=== PATIENT | male | born 1955 | race Caucasian/White ===

== ENCOUNTER 2022-07-05 14:43 | Emergency (ER) | payer OTHER ==
[~2022-07-05] VITALS: Ht 188 cm; Wt 68.0 kg
[2022-07-05 15:27] VITALS: BP_SYST 125
== END 2022-07-05 17:27 | disposition left against medical advice (07) ==
LOC: SED 14:43
DX: Z04.1 Encounter for examination and observation following transport accident (principal); Z53.21 Procedure and treatment not carried out due to patient leaving prior to being seen by health care provider